=== PATIENT | female | born 1945 | race Caucasian/White ===

== ENCOUNTER 2023-10-25 09:47 | Outpatient (AMB) | payer MEDICARE, OTHER, SELFPAY ==
[2023-10-25 09:56] VITALS: BP 144/70; PULSE 78; O2SAT 99; BMI 23.0
--- NOTE | 2023-10-25 09:56 | HO.NEPHOV_ITS ---
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 She has had carotid stenting . She denies any weakness, speech disturbances, visual disturbances, chest pain, shortness of breath, proximal nocturnal dyspnea, orthopnea, pedal edema, headache, nausea, vomiting or diarrhea. She does not take any nonsteroidal anti-inflammatories. She does not monitor her blood pressure very closely at home but has not been very well controlled. Otherwise there were no new complaints at the time this office visit. [facility] Medical History (Updated 10/26/23 @ 13:42 by Troy Monae MD) History of common carotid artery stent placement Carotid stenosis Hypertension Chronic kidney disease, stage 3a Family History Mother Cancer Father Cancer Brother Cancer Social History (Updated 10/25/23 @ 10:01 by Nanette Arias MA) Alcohol intake: current Patient Tobacco Use Status: Former Tobacco user Vital Signs 10/25/23 09:56 Height 5 ft 4 in Weight 134 lb 4 oz BMI 23.0 BP 144/70 H Blood Pressure Location Rt brachial Position Sitting Pulse 78 Pulse Source Pulse Oximeter Pulse Oximetry (%) 99 Oxygen Delivery Method Room Air Physical Exam Vital Signs: Last Vital Signs Pulse 78 10/25/23 09:56 BP 144/70 H 10/25/23 09:56 Pulse Ox 99 10/25/23 09:56 Oxygen Delivery Method Room Air 10/25/23 09:56 BMI result Body Mass Index 23.0 Const General: comfortable and no acute distress Orientation/consciousness: patient oriented x3 HEENT Head: Yes normocephalic Mouth: Normal oral and palatal mucosa present Eyes EOM: EOMs intact bilaterally Neck Neck: Yes supple Resp Auscultation: clear to auscultation bilaterally Cardio Jugular venous distension: no JVD Rate: regular rate GI Palpation (GI): Soft to palpation Auscultation: normal bowel sounds General: Yes no CVA tenderness Back/Spine/Pelvis Back: no CVA tenderness Skin General skin exam: no rashes or lesions noted Neuro General: patient oriented x3 and moves all extremities Extrem General: Yes no pedal edema Assessment & Plan Assessment & Plan (1) Chronic kidney disease, stage 3a: Code(s): N18.31 - Chronic kidney disease, stage 3a (2) Hypertension: Code(s): I10 - Essential (primary) hypertension Qualifiers: Hypertension type: renovascular hypertension Qualified Code(s): I15.0 - Renovascular hypertension Plan Debi has 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 Her serum creatinine has been around 1.3. She has history of carotid stenosis needing stenting. I increased her metoprolol to 37.5 mg twice daily. She avoids nonsteroidal anti- inflammatories and maintain good hydration. Her urine output is good. I shall do a Doppler of her renal arteries after next visit, in follow-up. I did not make any other medication changes today. Follow-up lab work ordered. Follow- up appointment given. Answered all questions. Orders: Orders Protein Creatinine Ratio, Ur 10/25/23 I10 - Essential (primary) hypertension, N18.31 - Chronic kidney disease, stage 3a Electrolytes 10/25/23 I10 - Essential (primary) hypertension, N18.31 - Chronic kidney disease, stage 3a Calcium 10/25/23 I10 - Essential (primary) hypertension, N18.31 - Chronic kidney disease, stage 3a Blood Urea Nitrogen 10/25/23 I10 - Essential (primary) hypertension, N18.31 - Chronic kidney disease, stage 3a Creatinine 10/25/23 I10 - Essential (primary) hypertension, N18.31 - Chronic kidney disease, stage 3a Medications: New metoprolol tartrate 37.5 mg (1.5 x 25 mg) PO BID 270 tabs 3RF 90 days Coding Level of Care Code Est Pt Level 4 (82780) Diagnoses Chronic kidney disease, stage 3a N18.31 Renovascular hypertension I15.0 Hypertension type: renovascular hypertension Results Reviewed Nephrology Results: No Data to Display
== END 2023-10-25 10:40 | disposition home or self-care (01) ==
PROVIDERS: Visit Provider Internal Medicine Nephrology
DX: N18.31 Chronic kidney disease, stage 3a (principal); I15.0 Renovascular hypertension
CPT/HCPCS: 99214

== ENCOUNTER → 2023-10-25 09:47 | Outpatient (BNVA) | payer OTHER, MEDICARE, SELFPAY | PROVIDERS: Visit Provider Internal Medicine Nephrology ==